=== PATIENT | female | born 1985 | race Caucasian/White ===

== ENCOUNTER 2016-11-13 09:50 | Emergency (ER) | payer SELFPAY ==
[2016-11-13 09:54] VITALS: BP 117/73; RESP 16; TEMP 98.3; O2SAT 100
--- NOTE | 2016-11-13 10:23 | PD ---
HPI Chief Complaint: Injury Time Seen by Provider: 10:17 Travel History International Travel<30 days: No Contact w/Intl Traveler<30days: No Traveled to known affect area: No History of Present Illness HPI Patient presents with left knee pain while in yoga. Denies any specific trauma. 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 Reports sitting on the single knee with acute onset of pain and a feeling of dislocation. Pain is alleviated with full flexion, aggravated with extension. Unable to bear weight. Denies PFSH Past Medical History Medical History: Denies Significant Hx Influenza Vaccination: Yes ?: Not LMP: 10/28/16 Past Surgical History Oral Surgery: Yes (WISDOM TEETH REMOVED) Social History Alcohol Use: Yes (SOCIALLY) Tobacco Use: No Substance Use: No Allergies-Medications (Allergen,Severity, Reaction): Coded Allergies: No Known Allergies (Unverified , 11/13/16) Reported Meds & Prescriptions Reported Meds & Active Scripts Active No Active Prescriptions or Reported Medications Review of Systems General / Constitutional: No: Fever Eyes: No: Visual changes HENT: No: Headaches Cardiovascular: No: Chest Pain or Discomfort Respiratory: No: Shortness of Breath Gastrointestinal: No: Abdominal Pain Genitourinary: No: Dysuria Musculoskeletal: No: Pain Skin: No Rash Neurologic: No: Weakness Psychiatric: No: Depression Endocrine: No: Polydipsia Hematologic/Lymphatic: No: Easy Bruising Physical Exam Narrative GENERAL: Well-nourished, well-developed patient. SKIN: Focused skin assessment warm/dry. HEAD: Normocephalic. EYES: No scleral icterus. No injection or drainage. NECK: Supple, trachea midline. No JVD or lymphadenopathy. CARDIOVASCULAR: Regular rate and rhythm without murmurs, gallops, or rubs. RESPIRATORY: Breath sounds equal bilaterally. No accessory muscle use. GASTROINTESTINAL: Abdomen soft, non-tender, nondistended. MUSCULOSKELETAL: No cyanosis, or edema. BACK: Nontender without obvious deformity. No CVA tenderness. Examination left knee is difficult and full flexion. No bony deformity or ecchymosis. The knee was extended without any crepitus or sensation of reduction. Data Data Last Documented VS Vital Signs Date Time Temp Pulse Resp B/P Pulse Ox O2 Delivery O2 Flow Rate FiO2 11/13/16 09:54 98.3 16 117/73 100 Orders Knee, Ltd (1 Or 2vws) (11/13/16 ) Hydromorphone Pf Inj (Dilaudid Pf Inj) (11/13/16 10:30) MDM Medical Decision Making Medical Screen Exam Complete: Yes Emergency Medical Condition: Yes Differential Diagnosis Left knee sprain, left knee dislocation, patellar dislocation, degenerative joint disease Narrative Course Assessment and plan discussed with patient and at bedside. Last 72 hours Impressions Knee X-Ray 11/13/16 0000 Signed Impressions: Service Date/Time: Sunday, November 13, 2016 10:36 - CONCLUSION: Unremarkable limited examination of the left knee. Yovanny Martinez MD Diagnosis Primary Impression: Strain of left knee Qualified Code: S86.912A - Strain of left knee, initial encounter Patient Instructions: General Instructions Additional Instructions: Encourage nonsteroidal anti-inflammatories, ice after activity, gentle range of motion exercises, knee immobilizer for comfort. Follow up with PCP. Consider MRI if symptoms persist Med/Other Pt SpecificInfo: Prescription(s) given Scripts Hydrocodone-Acetaminophen 5-325 mg Tab1 Tab PO Q4H PRN (PAIN) #20 TAB Ref 0 Prov:Maicol Sanford MD 11/13/16 Disposition: 01 DISCHARGE HOME Condition: Good Maicol Sanford MD Nov 13, 2016 10:22
[2016-11-13] MEDS ORDERED: HYDROmorphone HCL PF 1 MG/ML VIAL IM ONE (10:30)
--- NOTE | 2016-11-13 10:50 | RADRPT ---
EXAM DATE/TIME: 11/13/2016 10:36 [facility] COMPARISON: No previous studies available for comparison. INDICATIONS : Sudden onset of severe knee pain while doing yoga MEDICAL HISTORY : None. SURGICAL HISTORY : None. ENCOUNTER: Initial ACUITY: 1 day PAIN SCORE: 10/10 LOCATION: Left knee FINDINGS: Two view examination of the left knee demonstrates no evidence of fracture or dislocation. Bony mine ralization is normal. The suprapatellar soft tissues have a normal configuration. CONCLUSION: Unremarkable limited examination of the left knee. Yovanny Martinez MD on November 13, 2016 at 10:48 Board Certified Radiologist. This report was verified electronically.
[2016-11-13] MEDS ORDERED: HYDR-3516 PO (11:09)
[2016-11-13 11:10] VITALS: BP 116/68; PULSE 72; RESP 16; O2SAT 98
[2016-11-13 11:27] VITALS: RESP 16
== END 2016-11-13 11:30 | disposition home or self-care (01) ==
LOC: PHED 09:50
DX: S83.92XA Sprain of unspecified site of left knee, initial encounter (principal); X50.9XXA Other and unspecified overexertion or strenuous movements or postures, initial encounter; Y93.42 Activity, yoga
CPT/HCPCS: 73560; 96372; 99284; E0113; J1170; L1830